=== PATIENT | female | born 1995 | race Caucasian/White ===

== ENCOUNTER 2018-11-08 15:49 | Outpatient (CLI) | payer OTHER | END 2018-11-08 17:10 | disposition home or self-care (01) | LOC: OBT 15:49 → L-D 15:51 → OBT 17:10 | DX: O36.8130 Decreased fetal movements, third trimester, not applicable or unspecified (principal); Z3A.33 33 weeks gestation of pregnancy | CPT/HCPCS: 76818 ==

== ENCOUNTER 2018-12-28 11:39 | Inpatient (IN) | payer OTHER ==
[2018-12-28] MEDS ORDERED: CARBOPROST 250 MCG INJ IM (12:30)
[2018-12-28] MEDS ORDERED: OXYTOCIN 30 UNITS/LR 500 ML IV ×3 (12:30)
[2018-12-28] MEDS ORDERED: LIDOCAINE 1% (MPF) 30 ML INJ INJ (12:30)
[2018-12-28] MEDS ORDERED: MISOPROSTOL 50 MCG CAPSULE VAG (12:30)
[2018-12-28] MEDS ORDERED: METHYLERGONOVINE 0.2 MG INJ IM (12:30)
[2018-12-28] MEDS ORDERED: MISOPROSTOL 200 MCG TAB PR (12:30)
[2018-12-28 14:59] LABS: ADD MAN DIFF? NO
[2018-12-28 15:05] LABS: BASOPHILS % 0.4 % (0.0-2.0); EOSINOPHILS # 0.1 10^3/ul (0.0-0.5); EOSINOPHILS % 1.3 % (0.0-7.0); HEMATOCRIT 31.2 % (37.0-47.0); HEMOGLOBIN 10.1 g/dl (12.0-16.0); LYMPHOCYTES # 1.6 10^3/ul (0.8-2.9); LYMPHOCYTES % 20.4 % (15.0-51.0); MEAN CORPUSCULAR HEMOGLOBIN 30.6 pg (29.0-33.0); MEAN CORPUSCULAR HGB CONC 32.4 g/dl (32.0-37.0); MEAN CORPUSCULAR VOLUME 94.5 fl (82.0-101.0); MEAN PLATELET VOLUME 9.5 fl (7.4-10.4); MONOCYTE # 0.6 10^3/ul (0.3-0.9); MONOCYTES % 7.7 % (0.0-11.0); NEUTROPHIL # 5.3 10^3/ul (1.6-7.5); NEUTROPHILS % 69.4 % (39.0-77.0); PLATELET COUNT 267 10^3/UL (140-415); RED CELL DISTRIBUTION WIDTH 12.7 % (11.5-14.5)
[2018-12-28 15:05] LABS: WHITE BLOOD COUNT 7.7 10^3/ul (4.8-10.8)
[2018-12-28 15:25] LABS: INR 0.97
[2018-12-28 15:26] LABS: PARTIAL THROMBOPLASTIN TIME 28.6 Sec (23.0-35.0)
[2018-12-28] MEDS: LACTATED RINGER'S 1,000 ML IV ×2 (16:11→23:50)
[2018-12-28] MEDS: MISOPROSTOL 50 MCG CAPSULE PO ×3 (16:53→21:05)
[2018-12-28 19:16] LABS: RAPID PLASMA REAGIN REACTIVE (NR)
[2018-12-28 23:10] LABS: AMPHETAMINE/METHAMPHETAMINE NEGATIVE (NEGATIVE); BARBITURATES NEGATIVE (NEGATIVE); BENZODIAZEPINES NEGATIVE (NEGATIVE); CANNABINOIDS NEGATIVE (NEGATIVE); COCAINE NEGATIVE (NEGATIVE); OPIATES NEGATIVE (NEGATIVE)
[2018-12-29] MEDS: MISOPROSTOL 50 MCG CAPSULE PO ×2 (03:25→08:00)
[2018-12-29] MEDS: LACTATED RINGER'S 1,000 ML IV ×2 (06:54→16:02)
[2018-12-29] MEDS ORDERED: OXYTOCIN 30 UNITS/LR 500 ML IV ×2 (12:30→20:30)
[2018-12-29] MEDS: OXYTOCIN 30 UNITS/LR 500 ML IV ×2 (13:19→19:04)
[2018-12-29] MEDS ORDERED: NALOXONE (0.4 MG/ML) INJ IV (14:00)
[2018-12-29] MEDS ORDERED: FENTAnyl 2MCG/ML-ROPIV 0.2% 100 ML BAG EPI (14:00)
[2018-12-29] MEDS ORDERED: DIPHENHYDRAMINE 50 MG INJ IV (14:00)
[2018-12-29] MEDS ORDERED: ONDANSETRON 4 MG INJ IV (14:00)
[2018-12-29] MEDS ORDERED: MINERAL OIL 30ML CUP PO (16:30)
[2018-12-29] MEDS: MINERAL OIL LIGHT 10 ML VIAL TOP (17:00)
[2018-12-29 17:46] LABS: FLUORESCENT TREPONEMAL AB REACTIVE (NON-REACTIVE)
[2018-12-29] MEDS: KETOROLAC 30 MG INJ IV (19:52)
[2018-12-29] MEDS: ACETAMINOPHEN 500 MG TAB PO (19:52)
[2018-12-29] MEDS: LACTATED RINGER'S 1,000 ML IV* (20:27)
[2018-12-29] MEDS ORDERED: METHYLERGONOVINE 0.2 MG INJ IM (20:30)
[2018-12-29] MEDS ORDERED: CARBOPROST 250 MCG INJ IM (20:30)
[2018-12-29] MEDS ORDERED: MISOPROSTOL 200 MCG TAB PR (20:30)
[2018-12-29] MEDS ORDERED: ZOLPIDEM 5 MG TAB PO (20:30)
[2018-12-29] MEDS: BENZOCAINE 20% 56 ML SPRAY TOP (21:51)
[2018-12-29] MEDS: SENNA/DOCUSATE NA (8.6MG/50MG) TAB PO (21:51)
[2018-12-29] MEDS: MAGNESIUM HYDROXIDE 30ML CUP PO (21:51)
[2018-12-29] MEDS: LANOLIN HPA 1 PKT TOP (21:52)
[2018-12-29] MEDS: WITCH HAZEL/GLYCERIN PAD PR (21:52)
[2018-12-29 22:05] LABS: HEPATITIS B SURFACE ANTIGEN NEGATIVE (NEGATIVE)
[2018-12-29] MEDS: CEPHALEXIN 500 MG CAP PO (23:38)
[2018-12-29] MEDS: IBUPROFEN 600 MG TAB PO (23:39)
[2018-12-30] MEDS: CEPHALEXIN 500 MG CAP PO ×3 (05:43→17:28)
[2018-12-30] MEDS: IBUPROFEN 600 MG TAB PO ×3 (05:44→17:28)
[2018-12-30 07:04] LABS: ADD MAN DIFF? NO
[2018-12-30 07:09] LABS: WHITE BLOOD COUNT 10.9 10^3/ul (4.8-10.8)
[2018-12-30 07:09] LABS: BASOPHILS % 0.3 % (0.0-2.0); EOSINOPHILS # 0.1 10^3/ul (0.0-0.5); EOSINOPHILS % 0.7 % (0.0-7.0); HEMATOCRIT 26.2 % (37.0-47.0); HEMOGLOBIN 8.8 g/dl (12.0-16.0); LYMPHOCYTES # 1.9 10^3/ul (0.8-2.9); LYMPHOCYTES % 17.7 % (15.0-51.0); MEAN CORPUSCULAR HEMOGLOBIN 31.5 pg (29.0-33.0); MEAN CORPUSCULAR HGB CONC 33.6 g/dl (32.0-37.0); MEAN CORPUSCULAR VOLUME 93.9 fl (82.0-101.0); MEAN PLATELET VOLUME 9.3 fl (7.4-10.4); MONOCYTE # 0.9 10^3/ul (0.3-0.9); MONOCYTES % 8.4 % (0.0-11.0); NEUTROPHIL # 7.9 10^3/ul (1.6-7.5); NEUTROPHILS % 72.3 % (39.0-77.0); PLATELET COUNT 188 10^3/UL (140-415); RED BLOOD COUNT 2.79 10^6/ul (4.20-5.40); RED CELL DISTRIBUTION WIDTH 12.7 % (11.5-14.5)
[2018-12-30] MEDS: MAGNESIUM HYDROXIDE 30ML CUP PO ×2 (09:04→21:56)
[2018-12-30] MEDS: DIBUCAINE 1% 30 GM OINT TOP (09:04)
[2018-12-30] MEDS: HYDROCODONE/APAP (5/325) TAB PO (09:04)
[2018-12-30] MEDS: SENNA/DOCUSATE NA (8.6MG/50MG) TAB PO ×2 (09:04→21:56)
[2018-12-31] MEDS: CEPHALEXIN 500 MG CAP PO ×3 (00:27→12:08)
[2018-12-31] MEDS: IBUPROFEN 600 MG TAB PO ×3 (00:28→12:09)
[2018-12-31] MEDS: HYDROCODONE/APAP (5/325) TAB PO (01:08)
[2018-12-31] MEDS: SENNA/DOCUSATE NA (8.6MG/50MG) TAB PO (08:37)
[2018-12-31] MEDS ORDERED: VARICELLA VACCINE LIVE/PF 1,350 UNIT/0.5 ML ML SC* (09:00)
[2018-12-31] MEDS: MAGNESIUM HYDROXIDE 30ML CUP PO (09:00)
[2018-12-31] MEDS ORDERED: MEASLES,MUMPS,RUBELLA VACCINE INJ SC* (09:00)
[2018-12-31] MEDS: WITCH HAZEL/GLYCERIN PAD PR (12:09)
[2018-12-31] MEDS: LANOLIN HPA 1 PKT TOP (12:09)
[2018-12-31] MEDS: DIPHTH/TET/ACEL PERTUSS (ADULT) 0.5 ML VIAL IM* (14:04)
== END 2018-12-31 15:41 | disposition home or self-care (01) | DRG 807 ==
LOC: OBT 11:39 → L-D 11:42 → PP1 12-29 20:11 → L-D 12:31 → OBT 12:01 → L-D 12:01
PROVIDERS: Obstetrics & Gynecology
PROC: 10E0XZZ Delivery of Products of Conception, External Approach (ICD-10-PCS; principal; 2018-12-29)
PROC: 0KQM0ZZ Repair Perineum Muscle, Open Approach (ICD-10-PCS; 2018-12-29)
PROC: 3E033VJ Introduction of Other Hormone into Peripheral Vein, Percutaneous Approach (ICD-10-PCS; 2018-12-29)
DX: O48.0 Post-term pregnancy (principal); O70.1 Second degree perineal laceration during delivery; Z37.0 Single live birth; Z3A.40 40 weeks gestation of pregnancy
CPT/HCPCS: 62322; 76815; 76818; 80307; 85025; 85610; 85730; 86592; 86850; 86900; 86901; 87285; 87340; 90715; 90716